=== PATIENT | female | born 1955 | race Caucasian/White ===

== ENCOUNTER 2021-11-09 09:32 | Outpatient (CLI) | payer OTHER, SELFPAY ==
--- NOTE | 2021-11-09 10:15 | CRLHL7_ITS ---
For Patients: As a result of the Century Cures Act, medical imaging exams and procedure reports are released immediately into your electronic medical record. You may view this report before your referring provider. If you have questions, please contact your health care provider. BILATERAL SCREENING MAMMOGRAM WITH COMPUTER-AIDED DETECTION AND TOMOSYNTHESIS TECHNIQUE: CC and MLO views were obtained. These mammographic images have been obtained using full-field digital technique. These mammographic images were interpreted with the benefit of computer-aided detection. Breast Tomosynthesis was used in this interpretation. COMPARISON FILM: 05/28/20, 03/23/17, 03/08/16. FINDINGS: The breasts are heterogeneously dense, which may obscure small masses IMPRESSION: There is no radiographic evidence for malignancy. ASSESSMENT: BI-RADS Category 1: Negative RECOMMENDATION: Routine screening mammogram in 1 year. A lay language report of this examination will be provided to the patient. Mayo Escalona M.D. Diagnostic Radiologist [email or web address] LUZMA/Dictated by: Mayo Escalona MD @ 11/09/2021 12:43:00 PM (Electronically Signed)
== END 2021-11-09 09:33 | disposition home or self-care (01) ==
LOC: MAMMO 09:35
PROVIDERS: Visit Provider Family Medicine
DX: Z12.31 Encounter for screening mammogram for malignant neoplasm of breast (principal); R92.2 Inconclusive mammogram
CPT/HCPCS: 77063; 77067

== ENCOUNTER 2022-09-30 12:40 | Emergency (ER) | payer OTHER, SELFPAY ==
[2022-09-30] VITALS (24 sets, daily range): BP systolic 110–134; BP diastolic 77–97; PULSE 80–92; RESP 12; TEMP 36.3; O2SAT 94–100
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
--- NOTE | 2022-09-30 12:56 | CRLHL7_ITS ---
For Patients: As a result of the Century Cures Act, medical imaging exams and procedure reports are released immediately into your electronic medical record. You may view this report before your referring provider. If you have questions, please contact your health care provider. CLINICAL HISTORY: Trauma. TECHNIQUE: Helical CT acquisition of the cervical spine was performed. Coronal and sagittal reformations were performed and interpreted. COMPARISON: None available. FINDINGS: There is no evidence of acute displaced fracture or traumatic malalignment of the cervical spine. The facets are well aligned. Vertebral body heights are maintained without evidence of significant compression deformity. No evidence of significant trauma at the craniocervical junction. Cervical spondylosis. Uncovertebral hypertrophy and facet arthropathy contribute to varying degrees of multilevel foraminal narrowing, severe at multiple levels. No evidence of severe spinal canal stenosis. The visualized prevertebral soft tissues are unremarkable. The visualized lung apices are unremarkable. IMPRESSION: No acute displaced fracture or traumatic malalignment of the cervical spine. Please note that all CT scans at this facility use dose modulation, iterative reconstruction, and/or weight-based dosing when appropriate to reduce radiation dose to as low as reasonably achievable. Dictated by Fabio Kim MD @ 09/30/2022 1:33:52 PM (Electronically Signed)
--- NOTE | 2022-09-30 12:56 | CRLHL7_ITS ---
For Patients: As a result of the Century Cures Act, medical imaging exams and procedure reports are released immediately into your electronic medical record. You may view this report before your referring provider. If you have questions, please contact your health care provider. CLINICAL HISTORY: Trauma. TECHNIQUE: Standard helical CT image acquisition of the brain was performed. COMPARISON: None available. FINDINGS: There is no intracranial hemorrhage, extra-axial collection, mass effect, or midline shift. Gama-white matter differentiation is preserved. The ventricles are normal in size and morphology for patient age. No displaced calvarial fracture. The orbits are unremarkable. The paranasal sinuses are unremarkable. The mastoid air cells are unremarkable. IMPRESSION: No CT evidence of acute intracranial abnormality or closed-head injury. Please note that all CT scans at this facility use dose modulation, iterative reconstruction, and/or weight-based dosing when appropriate to reduce radiation dose to as low as reasonably achievable. Dictated by Fabio Kim MD @ 09/30/2022 1:30:59 PM (Electronically Signed)
--- NOTE | 2022-09-30 12:56 | CRLHL7_ITS ---
For Patients: As a result of the Century Cures Act, medical imaging exams and procedure reports are released immediately into your electronic medical record. You may view this report before your referring provider. If you have questions, please contact your health care provider. INDICATION: Back injury. TECHNIQUE: Three views right hand. IMPRESSION: No fracture. Anatomic alignment. No significant degenerative or inflammatory change in the fingers. Moderate osteoarthritis 1st carpometacarpal joint with marginal osteophytes and slight radial subluxation. Dictated by Guillermo Heard MD @ 09/30/2022 2:03:50 PM (Electronically Signed)
== END 2022-09-30 14:56 | disposition home or self-care (01) ==
PROVIDERS: Emergency Provider Family Medicine
DX: S09.90XA Unspecified injury of head, initial encounter (principal); M18.11 Unilateral primary osteoarthritis of first carpometacarpal joint, right hand; V26.49XA Other motorcycle driver injured in collision with other nonmotor vehicle in traffic accident, initial encounter
CPT/HCPCS: 29130; 70450; 72125; 73130; 99284; 99291

== ENCOUNTER 2022-12-13 10:55 | Outpatient (CLI) | payer OTHER, SELFPAY ==
--- NOTE | 2022-12-13 15:40 | CRLHL7_ITS ---
For Patients: As a result of the Century Cures Act, medical imaging exams and procedure reports are released immediately into your electronic medical record. You may view this report before your referring provider. If you have questions, please contact your health care provider. BILATERAL SCREENING MAMMOGRAM WITH COMPUTER-AIDED DETECTION AND TOMOSYNTHESIS TECHNIQUE: CC and MLO views were obtained. These mammographic images have been obtained using full-field digital technique. These mammographic images were interpreted with the benefit of computer-aided detection. Breast Tomosynthesis was used in this interpretation. COMPARISON FILM: 11/09/21, 05/28/20, 03/23/17. FINDINGS: The breasts are heterogeneously dense, which may obscure small masses IMPRESSION: There is no radiographic evidence for malignancy. ASSESSMENT: BI-RADS Category 1: Negative RECOMMENDATION: Routine screening mammogram in 1 year. A lay language report of this examination will be provided to the patient. Mayo Escalona M.D. Diagnostic Radiologist [email or web address] LUZMA/Dictated by: Mayo Escalona MD @ 12/13/2022 12:29:00 PM (Electronically Signed)
== END 2022-12-13 10:56 | disposition home or self-care (01) ==
LOC: MAMMO 10:56
PROVIDERS: Visit Provider Family Medicine
DX: Z12.31 Encounter for screening mammogram for malignant neoplasm of breast (principal); R92.2 Inconclusive mammogram
CPT/HCPCS: 77063; 77067

== ENCOUNTER 2023-02-21 14:37 | Outpatient (CLI) | payer OTHER, SELFPAY ==
--- NOTE | 2023-02-21 15:00 | CRLHL7_ITS ---
For Patients: As a result of the Century Cures Act, medical imaging exams and procedure reports are released immediately into your electronic medical record. You may view this report before your referring provider. If you have questions, please contact your health care provider. DXA BONE MINERAL DENSITY STUDY, 02/21/2023 Current height (in): 67. Weight (lb): 132.0. Menopause age: 52. Ethnicity: White. 1. Have you had a previous hip or vertebral fracture? No. 2. Have you had any fractures during your adult life which did not result from significant trauma (e.g., auto accident)? No. 3. Did either of your parents have a hip fracture? No. 4. Do you smoke? No. 5. Have you ever taken Glucocorticoids? No. 6. Do you have rheumatoid arthritis? No. 7. Do you have secondary osteoporosis? No. 8. Do you drink 3 or more alcoholic drinks per day? No. 9. Are you being treated for osteoporosis? No. 10. Have you ever taken any of the following medications: Actonel, Evista, Fosamax, Miacalcin, Reclast, Boniva, Forteo, HRT (i.e. estrogen/hormone therapy), Protelos, Prolia, Vitamin D, Calcium, other ??? please specify. ANSWER: No. 11. Do you have any of the following medical conditions: Anorexia or bulimia, asthma or emphysema, end stage renal disease, hyperparathyroidism, any seizure disorders, cancer, inflammatory bowel diseases, hysterectomy, other ??? please specify. ANSWER: No. 12. What was your maximum height (inches)? 67.5. 13. Do you perform weight bearing exercise regularly? No. 14. Do you regularly consume dairy products? No. 15. Do you drink caffeinated beverages? No. If female: 16. At what age did your period start? 15. 17. Are you premenopausal? No. 18. How many full term pregnancies have you had? 3. 19. Have you ever missed your period for more than 6 months in a row (not including or menopause)? No. TECHNIQUE: Bone mineral density study was performed using the [employer]. FINDINGS: The results of the study expressed as bone mineral density (BMD) are as follows: Lumbar spine L1, L2 and L4: BMD: 0.971 g/cm2. T-score: -0.6. Z-score: 1.2. Neck Left: BMD: 0.655 g/cm2. T-score: -1.7. Z-score: -0.2. Right: BMD: 0.682 g/cm2. T-score: -1.5. Z-score: 0.0. Total Left: BMD: 0.733 g/cm2. T-score: -1.7. Z-score: -0.5. Right: BMD: 0.813 g/cm2. T-score: -1.1. Z-score:0.2. IMPRESSION: Osteopenia. *Comparison exams done prior to 08/2019 were performed on different unit, [facility]. Mayo Escaloan M.D. Diagnostic Radiologist [email or web address] CAMERON/jeannie JR/Dictated by: Mayo Escalona MD @ 02/26/2023 6:35:00 AM (Electronically Signed)
== END 2023-02-21 14:38 | disposition home or self-care (01) ==
LOC: RAD 14:38
PROVIDERS: Visit Provider Family Medicine
DX: Z13.820 Encounter for screening for osteoporosis (principal); M85.89 Other specified disorders of bone density and structure, multiple sites
CPT/HCPCS: 77080

== ENCOUNTER 2023-07-05 09:39 | Outpatient (CLI) | payer MEDICARE, BC, SELFPAY ==
--- OUTSIDE RECORDS SUMMARY | 2023-07-05 09:43 | XMS_ITS | Clinical Summary ---
Author Name Unknown Organization [facility] Address [place], [place] [address] Care Team Providers Care Director Hematology Name Role Phone Adan Song Primary Care Provider [phone] Allergies Active Allergy Reactions Criticality Noted Date Comments Penicillins Hives 02/24/2011 Medications Medication Sig Dispensed Refills Start Date End Date Status lisinopril (PRINIVIL; ZESTRIL) 10 mg tablet Take 10 mg by mouth once daily. Active aspirin 81 mg tablet Take 81 mg by mouth once daily with a meal. Active HYDROcodone-acetam inophen, 5-500 mg, (VICODIN) Tab tablet Take 1-2 tablets by mouth every 6 hours if needed for Pain. Max acetaminophen dose: 4000mg in 24 hrs. 25 tablet 0 03/07/2011 Active Family History Medical History Relation Name Comments Cancer-prostate Maternal Uncle 60s Cancer No Family History Cancer-breast No Family History Cancer-colon No Family History Cancer-ovarian No Family History Relation Name Status Comments Maternal Uncle Social History Tobacco Use Types Packs/Day Years Used Date Smoking Tobacco: Never Assessed Sex and Gender Information Value Date Recorded Sex Assigned at Not on file Gender Identity Not on file Sexual Orientation Not on file Obstetrics History Last Filed Vital Signs Vital Sign Reading Time Taken Comments Blood Pressure 96/66 03/14/2011 3:29 PM SENIOR INTEGRATION DEVELOPER Pulse 83 03/14/2011 3:29 PM SENIOR INTEGRATION DEVELOPER Temperature 36.5 ??C (97.7 ??F) 03/14/2011 3:03 PM CS T Respiratory Rate 16 03/14/2011 3:29 PM SENIOR INTEGRATION DEVELOPER Oxygen Saturation 96% 03/14/2011 3:29 PM SENIOR INTEGRATION DEVELOPER Inhaled Oxygen Concentration - - Weight 62.1 kg (137 lb) 03/14/2011 1:37 PM SENIOR INTEGRATION DEVELOPER Height 170.2 cm (5' 7) 03/14/2011 1:37 PM SENIOR INTEGRATION DEVELOPER Body Mass Index 21.46 03/14/2011 1:37 PM SENIOR INTEGRATION DEVELOPER Plan of Treatment Health Maintenance Due Date Last Done Comments Tdap 1968 Depression screening for age 12+ 1969 HIV for age 15-65 1972 BMI (ht and wt on same day) for age 18+ 12/12/1975 Hepatitis C screening for age 18-79 12/12/1975 Tetanus booster 1977 Pap test for age 21-65 1978 Colonoscopy through age 75 2002 Lipids for age 45-75 2002 Mammogram for age 45-75 2002 Zoster (shingles) series for age 50+ (1 of 2) 12/12/19 08 COVID-19 vaccine series (1 - 2022- season) 3 DEXA/DXA scan for age 65+ 2022 Pneumococcal series for age 65+ (1 of 1 - PCV) 023 Influenza for age 65+ 11/25/2023 Care Teams Director Hematology Relationship Specialty Start Date End Date Adan Song PCP - General Family Practice 02/14/11
--- OUTSIDE RECORDS SUMMARY | 2023-07-05 09:44 | XMS_ITS | Referral Summary ---
Author Name Unknown Organization [facility] Address [address] [place] [address] Care Team Providers Care Dietetic Aide Name Role Phone Unavailable Primary Care Provider Unavailabl e Source Comments Patient records contain information from all sites at [facility]. For routine questions regarding patient records, call [phone] during business hours, M-F 8:00 AM - 5:00 PM Central Time. Record requests for emergency care only can be directed to [phone] at any time.[facility] Encounters Date Type Department Care Team Description 04/19/2023 12:40 PM FILM LOADER Silent Schedule Department of Ophthalmology in [address] [phone] Duy Syed M.D. 04/19/2023 12:35 PM FILM LOADER Silent Schedule Department of Ophthalmology in [address] [phone] Duy Syed M.D. 04/19/2023 12:30 PM FILM LOADER Silent Schedule Department of Ophthalmology in [address] [phone] Duy Syed M.D. 04/19/2023 12:30 PM FILM LOADER Comprehensive Visit Department of Ophthalmology in [address] [phone] Duy Syed M.D. Cataract Senile Nuclear Sclerosis Bilateral (Primary Dx); Cataract Senile Cortical Bilateral; Laser Assisted In Situ Keratomileusis Status Post; Presbyopia Discharge Disposition: Home or Self Care from Last 3 Months Allergies Active Allergy Reactions Criticality Noted Date Comments Fluoxetine Nausea And Vomiting 09/28/2016 Penicillins Hives (Reselect Reac tion),Hives only, no other systemic symptoms Medium 06/28/2010 PENICILLINS Medications Medication Sig Dispensed Refills Start Date End Date Status atorvastatin (LIPITOR) 40 mg tablet Take ONE tab nightly for cholesterol 0 01/16/2023 Active clonazePAM (KlonoPIN) 0.5 mg tablet May take 1/2 to one tab once a day or as instructed 0 09/29/2016 Active venlafaxine XR (EFFEXOR-XR) 150 mg 24 hr capsule Take one a day 0 03/07/2023 Active omeprazole (PriLOSEC OTC) 20 mg EC tablet Take 1 tablet by mouth daily. 0 09/29/2016 Active metFORMIN (GLUCOPHAGE) 500 mg tablet TAKE ONE TABLET BY MOUTH TWICE A DAY FOR DIABETES 0 03/07/2023 Active lisinopriL (PRINIVIL,ZESTRIL) 10 mg tablet Take 10 mg by mouth. 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 Social History Tobacco Use Types Packs/Day Years Used Date Smoking Tobacco: Never Smokeless Tobacco: Never Tobacco Cessation:Counseling Given: Not Answered Nutrition Answer Date Recorded Nutrition: EVOO Fat Source Unknown 04/02 Nutrition: Servings of Fruits/Vegetables per Day Not on file 04/02/2023 Dental Answer Date Recorded Dental: Regular Dentist Unknown 04/02/19 Sex and Gender Information Value Date Recorded Sex Assigned at Not on file Gender Identity Not on file Sexual Orientation Not on file Last Filed Vital Signs Vital Sign Reading Time Taken Comments Blood Pressure 132/92 10/05/2016 8:20 AM CDT Pulse 104 10/05/2016 8:20 AM CDT Temperature - - Respiratory Rate 16 10/05/2016 8:20 AM CDT Oxygen Saturation - - Inhaled Oxygen Concentration - - Weight 64.1 kg (141 lb 5 oz) 04/19/2023 12:54 PM FILM LOADER Height 168.1 cm (5' 6.18) 04/19/2023 12:[address] Body Mass Index 22.68 04/19/2023 12:54 PM FILM LOADER Plan of Treatment Not on file Medical Devices Implanted Type Area Cook 3 Pastry Device Identifier Shelf Expiration Date Model / Serial / Lot Conversions - Default Historical Implant Device Implanted:Qty: 1 on 01/25/2012 Breast Other Left: Breast Description:Body Location - Breast L. Device Status Text - BreastOth. 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 Procedures Procedure Name Priority Date/Time Associated Diagnosis Comments OCULAR COHERENCE BIOMETRY (OCB) - OU - BOTH EYES Routine 04/19/2023 1:48 PM FILM LOADER Cataract Senile Nuclear Sclerosis Bilateral Cataract Senile Cortical Bilateral OPTICAL COHERENCE TOMOGRAPHY - MACULA/RETINA - OU - BOTH EYES Routine 04/19/2023 1:47 PM FILM LOADER Cataract Senile Nuclear Sclerosis Bilateral Cataract Senile Cortical Bilateral CORNEAL TOPOGRAPHY - OU - BOTH EYES Routine 04/19/2023 1:47 PM FILM LOADER Cataract Senile Nuclear Sclerosis Bilateral Cataract Senile Cortical Bilateral from Last 3 Months Results * Ocular Coherence Biometry (OCB) - OU - Both Eyes (04/19/2023 1:48 PM FILM LOADER) Duy Syed M.D. OPHTH PHOTOGRAPHY Performing Organization Address [facility] Co de Phone Number OPHTHALMOLOGY IMAGING EXAM * Optical Coherence Tomography - Macula/Retina - OU - Both Eyes (04/19/2023 1:47 PM FILM LOADER) Narrative OPHTHALMOLOGY IMAGING EXAM - 04/19/2023 1:47 PM FILM LOADER Right Eye Reliability was good. Scan locations included macula. Findings include normal observations. Left Eye Reliability was good. Scan locations included macula. Findings include normal observations. Duy Syed M.D. OPHTH TOMOGRAPHY Performing Organization Address [facility] Co de Phone Number OPHTHALMOLOGY IMAGING EXAM * Corneal Topography - OU - Both Eyes (04/19/2023 1:47 PM FILM LOADER) Narrative OPHTHALMOLOGY IMAGING EXAM - 04/19/2023 1:47 PM FILM LOADER Right Eye Findings include normal observations. Left Eye Findings include normal observations. Duy WEINSTEIN OTHER OPHTHALMOLOGY IMAGING EXAM from Last 3 Months
--- OUTSIDE RECORDS SUMMARY | 2023-07-05 09:44 | XMS_ITS ---
Author Name Unknown Organization [facility] Address [address] [place] [address] Care Team Providers Care Research Associate Molecular Biology Name Role Phone Unavailable Unavailable Unavailable Surgery Details Not on file Complications Check Surgery Details section. Procedure Estimated Blood Loss Check Surgery Details section. Procedure Findings Check Surgery Details section. Procedure Specimens Taken Check Surgery Details section.
--- OUTSIDE RECORDS SUMMARY | 2023-07-05 09:44 | XMS_ITS | Encounter Summary ---
Author Name Unknown Organization [facility] Address [address] [place] [address] Care Team Providers Care Breast Buffer Name Role Phone Unavailable Primary Care Provider Unavailabl e Encounter Details Date Type Department Care Team (Late st Contact Info) Description 04/19/2023 12:35 PM PRESCHOOL TEACHER AIDE Silent Schedule Department of Ophthalmology in [address] [phone] Duy Syed M.D. [address] [place] [phone] Social History Tobacco Use Types Packs/Day Years Used Date Smoking Tobacco: Never Smokeless Tobacco: Never Nutrition Answer Date Recorded Nutrition: EVOO Fat Source Unknown 04/02 Nutrition: Servings of Fruits/Vegetables per Day Not on file 04/02/2023 Dental Answer Date Recorded Dental: Regular Dentist Unknown 04/02/19 24 Sex and Gender Information Value Date Recorded Sex Assigned at Not on file Gender Identity Not on file Sexual Orientation Not on file documented as of this encounter Plan of Treatment Not on file documented as of this encounter Procedures Procedure Name Priority Date/Time Associated Diagnosis Comments OPTICAL COHERENCE TOMOGRAPHY - MACULA/RETINA - OU - BOTH EYES Routine 04/19/2023 1:47 PM PRESCHOOL TEACHER AIDE Cataract Senile Nuclear Sclerosis Bilateral Cataract Senile Cortical Bilateral documented in this encounter Results * Optical Coherence Tomography - Macula/Retina - OU - Both Eyes (04/19/2023 1:47 PM PRESCHOOL TEACHER AIDE) Narrative OPHTHALMOLOGY IMAGING EXAM - 04/19/2023 1:47 PM PRESCHOOL TEACHER AIDE Right Eye Reliability was good. Scan locations included macula. Findings include normal observations. Left Eye Reliability was good. Scan locations included macula. Findings include normal observations. Duy Syed M.D. OPHTH TOMOGRAPHY OPHTHALMOLOGY IMAGING EXAM documented in this encounter Visit Diagnoses Not on filedocumented in this encounter Additional Health Concerns Assessment Noted Time PHQ-9 Depression Total Score: 7 10/06/19 17 8:31 AM CDT documented as of this encounter
--- OUTSIDE RECORDS SUMMARY | 2023-07-05 09:44 | XMS_ITS | Encounter Summary ---
Author Name Unknown Organization [facility] er Address [address] [place] [address] Care Team Providers Care Electroplater Apprentice Name Role Phone Negrita Valdes APRN Primary Care Provider Encounter Details Date Type Department Care Team (Late st Contact Info) Description 05/07/2023 Orders Only [place] [address] [phone] Esteban Song MD 17[address] [facility] [address] [place] [phone] Social History Tobacco Use Types Packs/Day Years Used Date Smoking Tobacco: Never Smokeless Tobacco: Never Alcohol Use Standard Drinks/Week Comments No 0 (1 standard drink = 0.6 oz pur e alcohol) Humiliation, Afraid, Rape, and Kick questionnair e Answer Date Recorded Within the last year, have y ou been afraid of your partner or ex-partner? No 01/15/2023 Within the last year, have y ou been humiliated or emotionally abused in other ways by your partner or ex-partner? No Within the last year, have y ou been kicked, hit, slapped, or otherwise physically hurt by your partner or ex-partner? No 01/15/2023 Within the last year, have y ou been raped or forced to have any kind of sexual activity by your partner or ex-partner? No 01/15/2023 Social Connection and Isolat ion Panel [NHANES] Answer Date Recorded In a typical week, how many times do you talk on the phone with family, friends, or neighbors? Three times a week 01/15/2023 How often do you get togethe r with friends or relatives? More than three times a week 01/15/2023 How often do you attend chur or hinduism services? More than 4 times per year 01/15/2023 Do you belong to any clubs o r organizations such as samaritan groups, unions, fraternal or athletic groups, or school groups? Yes 01/15/2023 How often do you attend meet ings of the clubs or organizations you belong to? More than 4 times per year 01/15/2023 Are you , , di vorced, , never , or living with a partner? 01/15/2023 AUDIT-C Answer Date Recorded Q1: How often do you have a drink containing alcohol? Monthly or less 01/15/2023 Q2: How many drinks containi ng alcohol do you have on a typical day when you are drinking? Patient does not drink Q3: How often do you have si x or more drinks on one occasion? Never 01/15/2023 Overall Financial Resource Strain (CARDIA) Answe r Date Recorded How hard is it for you to pa y for the very basics like food, housing, medical care, and heating? Not hard at all 01/15/2023 PHQ-2 Answer Date Recorded PHQ-9 Total Score 1 01/15/2023 [facility] - Occupational Stress Questionnaire Answer Date Recorded Do you feel stress - tense, restless, nervous, or anxious, or unable to sleep at night because your mind is troubled all the time - these days? To some extent 01/15/2023 Exercise Vital Sign Answer Date Recorde d On average, how many days pe r week do you engage in moderate to strenuous exercise (like a brisk walk)? 1 day 01/15/2023 On average, how many minutes do you engage in exercise at this level? 20 min 01/15/2023 Hunger Vital Sign Answer Date Recorded Within the past 12 months, y ou worried that your food would run out before you got the money to buy more. Never true 01/16/20 Within the past 12 months, t he food you bought just didn't last and you didn't have money to get more. Never true 01/15/2023 PRAPARE - Transportation Answer Date Re corded In the past 12 months, has l ack of transportation kept you from medical appointments or from getting medications? No 12/25 In the past 12 months, has l ack of transportation kept you from meetings, work, or from getting things needed for daily living? No 01/15/2023 Housing Stability Vital Sign Answer Jayce e Recorded In the last 12 months, was t here a time when you were not able to pay the mortgage or rent on time? No 01/15/2023 In the last 12 months, how many places have you lived? 2 01/15/2023 In the last 12 months, was t here a time when you did not have a steady place to sleep or slept in a fdc (including now)? No 01/15/2023 Sex and Gender Information Value Date Recorded Sex Assigned at Not on file Gender Identity Not on file Sexual Orientation Not on file documented as of this encounter Plan of Treatment Not on file documented as of this encounter Visit Diagnoses Not on filedocumented in this encounter Care Teams Electroplater Apprentice Relationship Specialty Start Date End Date Negrita Valdes, SUBSYSTEMS ENGINEER [address] [place] [phone] PCP - General 01/11/23 documented as of this encounter
--- OUTSIDE RECORDS SUMMARY | 2023-07-05 09:44 | XMS_ITS | Encounter Summary ---
Author Name Unknown Organization [facility] er Address [address] [place] [address] Care Team Providers Care Bowling Ball Assembler Name Role Phone Negrita Valdes APRN Primary Care Provider Encounter Details Date Type Department Care Team (Late st Contact Info) Description 03/14/2023 Telephone [facility] 52 Sleep Medicine [address] [address] Wilma Petty, DNP, RIVERINE ASSAULT CRAFT CREWMAN, BRAND ADVISOR 4303 [facility] [address] [place], [place] [id number] Social History Tobacco Use Types Packs/Day Years [...] How often do you attend chur or evangelical services? More than 4 times per year 01/15/2023 Do you belong to any clubs o r organizations such as cheondoism groups, unions, fraternal or athletic groups, or [...] Date Recorded PHQ-9 Total Score 1 01/15/2023 [facility] - Occupational [...] place to sleep or slept in a assisted (including now)? No 01/15/2023 Sex and Gender Information Value Date Recorded Sex Assigned at Not on file Gender Identity Not on file Sexual Orientation Not on file documented as of this encounter Plan of Treatment Not on file documented as of this encounter Visit Diagnoses Not on filedocumented in this encounter Care Teams Bowling Ball Assembler Relationship Specialty Start Date End Date Negrita Valdes, RIVERINE ASSAULT CRAFT CREWMAN [address] [place] [phone] PCP - General 01/11/23 documented as of this encounter
--- OUTSIDE RECORDS SUMMARY | 2023-07-05 09:44 | XMS_ITS | Encounter Summary ---
Author Name Unknown Organization [facility] Address [address] [place] [address] Care Team Providers Care Community Service Aide Name Role Phone Unavailable Primary Care Provider Unavailabl e Reason for Referral * Outpatient (Routine) - Authorized Specialty Diagnoses / Procedures Referred By Marcel chaves Referred To Contact Ophthalmology Diagnoses Cataract Senile Nuclear Sclerosis Bilateral Cataract Senile Cortical Bilateral Duy Syed M.D. [address] [place] [phone] [facility] Referral ID Status Reason Start Date Expiration Date Visits Requested Visits Authorized [id number] Authorized Specialty Services Required 04/19/2023 10/18/2024 1 1 TSPERSONS Reason for Visit * Reason Comments Blurred Vision * Appointment Request (Routine) - Closed Specialty Diagnoses / Procedures Referred By Marecl chaves Referred To Contact Ophthalmology Referral ID Status Reason Start Date Expiration Date Visits Re quested Visits Authorized [id number] Closed 04/02/2023 04/01/2024 1 1 Encounter Details Date Type Department Care Team (Latest Contact Info) Description 04/19/2023 12:30 PM SPORTSPERSONS Comprehensive Visit Department of Ophthalmology in [place], [place] [address] [place] [phone] Duy Syed M.D. [address] [place] [phone] Cataract Senile Nuclear Sclerosis Bilateral (Primary Dx); Cataract Senile Cortical Bilateral; Laser Assisted In Situ Keratomileusis Status Post; Presbyopia Discharge Disposition: Home or Self Care Social History Tobacco Use Types Packs/Day Years [...] on file documented as of this encounter Last Filed Vital Signs Vital Sign Reading Time Taken Comments Blood Pressure - - Pulse - - Temperature - - Respiratory Rate - - Oxygen Saturation - - Inhaled Oxygen Concentration - - Weight 64.1 kg (141 lb 5 oz) 04/19/2023 12:54 PM SPORTSPERSONS Height 168.1 cm (5' 6.18) 04/19/2023 12:[address] Body Mass Index 22.68 04/19/2023 12:54 PM SPORTSPERSONS documented in this encounter Progress Notes * Duy Syed M.D. - 04/19/2023 12:30 PM [address]ST Margy Morton was seen today for Blurred Vision #1 Cataract Senile Nuclear Sclerosis Bilateral #2 Cataract Senile Cortical Bilateral #3 Laser Assisted In Situ Keratomileusis Status Post #4 Presbyopia THE PATIENT IS HERE TODAY FOR A CATARACT SURGERY EVALUATION. SHE WEARS GLASSES FOR READING AND FEELS LIKE HER VISION FOR THE MOST PART IS QUITE GOOD. She would LASIK surgery some years ago. Examination: Visual gonzalez by confrontation are intact, motility full, pupils normal, external normal Slit-lamp examination: Lid margins clean, conjunctiva clear quiet, cornea show mild inferior dry keratopathy, chambers quiet, lens shows +2 nuclear sclerosis and +1 cortical cataract OU Fundus: The disc, macula, vessels and periphery normal Impression 1. Refractive errors with presbyopia 2. History of LASIK surgery 3. Minimally symptomatic cataracts Plan: 1. Reassurance 2. Continue with reading glasses 3. Recheck annually. TSPERSONS documented in this encounter Plan of Treatment Scheduled Referrals Name Type Priority Associated Diagnoses Order Schedule Ophthalmology - General consult (clinic) Outpatient Referral Routine Cataract Senile Nuclear Sclerosis Bilateral Cataract Senile Cortical Bilateral Expected: 04/19/2024 (Approximate), Expires: 07/18/2024 documented as of this encounter Procedures Procedure Name Priority Date/Time Associated Diagnosis Comments OCULAR COHERENCE BIOMETRY (OCB) - OU - BOTH EYES Routine 04/19/2023 1:48 PM SPORTSPERSONS Cataract Senile Nuclear Sclerosis Bilateral Cataract Senile Cortical Bilateral OPTICAL COHERENCE TOMOGRAPHY - MACULA/RETINA - OU - BOTH EYES Routine 04/19/2023 1:47 PM SPORTSPERSONS Cataract Senile Nuclear Sclerosis Bilateral Cataract Senile Cortical Bilateral CORNEAL TOPOGRAPHY - OU - BOTH EYES Routine 04/19/2023 1:47 PM SPORTSPERSONS Cataract Senile Nuclear Sclerosis Bilateral Cataract Senile Cortical Bilateral documented in this encounter Results * Ocular Coherence Biometry (OCB) - OU - Both Eyes (04/19/2023 1:48 PM SPORTSPERSONS) Duy Syed M.D. OPHTH PHOTOGRAPHY Performing Organization Address [facility] Co de Phone Number OPHTHALMOLOGY IMAGING EXAM * Optical Coherence Tomography - Macula/Retina - OU - Both Eyes (04/19/2023 1:47 PM SPORTSPERSONS) Narrative OPHTHALMOLOGY IMAGING EXAM - 04/19/2023 1:47 PM SPORTSPERSONS Right Eye Reliability was good. Scan locations included macula. Findings include normal observations. Left Eye Reliability was good. Scan locations included macula. Findings include normal observations. Duy Syed M.D. OPHTH TOMOGRAPHY Performing Organization Address [facility] Co de Phone Number OPHTHALMOLOGY IMAGING EXAM * Corneal Topography - OU - Both Eyes (04/19/2023 1:47 PM SPORTSPERSONS) Narrative OPHTHALMOLOGY IMAGING EXAM - 04/19/2023 1:47 PM SPORTSPERSONS Right Eye Findings include normal observations. Left Eye Findings include normal observations. Duy Syed M.D. OPHTH OTHER OPHTHALMOLOGY IMAGING EXAM documented in this encounter Visit Diagnoses Diagnosis Cataract Senile Nuclear Sclerosis Bilateral- Primary Cataract Senile Cortical Bilateral Laser Assisted In Situ Keratomileusis Status Post Presbyopia documented in this encounter Additional Health Concerns Assessment Noted Time PHQ-9 Depression Total Score: 7 10/06/19 17 8:31 AM CDT documented as of this encounter
--- OUTSIDE RECORDS SUMMARY | 2023-07-05 09:44 | XMS_ITS | Encounter Summary ---
Author Name Unknown Organization [facility] er Address [address] [place] [address] Care Team Providers Care Television Newscast Director Name Role Phone Negrita Valdes APRN Primary Care Provider Reason for Visit * Reason Comments Blood Pressure Check Encounter Details Date Type Department Care Team (Late st Contact Info) Description 06/29/2023 2:40 PM CDT Clinical Support [place] [address] [facility] 20 [place] [address] Social History Tobacco Use Types Packs/Day Years Used Date Smoking Tobacco: Never Smokeless Tobacco: Never Tobacco Cessation:Counseling Given: Not Answered Alcohol Use Standard Drinks/Week Comments No 0 [...] 01/15/2023 How often do you attend chur ch or restorationism services? More than 4 times per year 01/15/2023 Do you belong to any clubs o r organizations such as muslim groups, unions, fraternal or athletic groups, or [...] Date Recorded PHQ-9 Total Score 1 01/15/2023 [facility] of Occupat ional Health - Occupational Stress [...] place to sleep or slept in a retirement (including now)? No 01/15/2023 Sex and Gender Information Value Date Recorded Sex Assigned at Not on file Gender Identity Not on file Sexual Orientation Not on file documented as of this encounter Last Filed Vital Signs Vital Sign Reading Time Taken Comments Blood Pressure 120/86 06/29/2023 3:00 PM CDT Pulse 92 06/29/2023 3:00 PM CDT Temperature - - Respiratory Rate - - Oxygen Saturation - - Inhaled Oxygen Concentration - - Weight - - Height - - Body Mass Index - - documented in this encounter Progress Notes * Angela Duarte LPN - 06/29/2023 2:40 PM CDT BP: 120/86 P: [address] Blood pressure check per Dr[address] Song. She takes her Benicar every morning 20mg. documented in this encounter Plan of Treatment Not on file documented as of this encounter Visit Diagnoses Not on filedocumented in this encounter Care Teams Television Newscast Director Relationship Specialty Start Date End Date Negrita Valdes APRN [address] [place] [id number] PCP - General 01/11/23 documented as of this encounter
--- OUTSIDE RECORDS SUMMARY | 2023-07-05 09:44 | XMS_ITS | Clinical Summary ---
Author Name Unknown Organization [facility] er Address [address] [place] [address] Care Team Providers Care Design Drafter Name Role Phone Negrita Valdes APRN Primary Care Provider Allergies Active Allergy Reactions Criticality Noted Date Comments Penicillin V Potassium Medium Medications Medication Sig Dispensed Refills Start Date End Date Status QUEtiapine (SEROquel) 100 MG tabletIndications:D epression, unspecified depression type,Anxiety,Sleep disturbance Take ONE and 1/2 tabs at night 135 tablet 3 09/22/2022 Active atorvastatin (Lipitor) 40 MG tabletIndications:M ixed hyperlipidemia Take ONE tab nightly for cholesterol 90 tablet 3 01/16/2023 Active clonazePAM (KlonoPIN) 0.5 MG tabletIndications:A nxiety May take 1/2 to one tab once a day or as instructed 30 tablet 5 02/19/2023 Active ARIPiprazole (ABILIFY) 5 MG tabletIndications:R ecurrent major depressive disorder, in partial remission (HCC) Take one a day 90 tablet 3 03/07/2023 Active metFORMIN (GLUCOPHAGE) 500 MG tabletIndications:T ype 2 diabetes mellitus without complication, without long-term current use of insulin (HCC) TAKE ONE TABLET BY MOUTH TWICE A DAY FOR DIABETES 180 tablet 1 03/07/2023 Active olmesartan (Benicar) 20 MG tabletIndications:P rimary hypertension Take one a day for blood pressure 135 tablet 1 03/07/2023 Active venlafaxine XR (EFFEXOR-XR) 150 MG 24 hr capsuleIndications: Recurrent major depressive disorder, in partial remission (HCC) Take one a day 90 capsule 3 03/07/2023 Active lisinopril (ZESTRIL) 10 MG tablet Take 1 tablet (10 mg total) by mouth 0 4 Discontinu ed(Alterna te Therapy) Active Problems Problem Noted Date Diagnosed Date Mixed hyperlipidemia 01/16/2023 Type 2 diabetes mellitus wit hout complication, without long-term current use of insulin 05/05/2021 Adenomatous polyp of descending colon 04/02/2020 Chronic post-traumatic stress disorder 7 Generalized anxiety disorder 08/28/2016 Primary hypertension 02/25/2014 Personal history of malignant neoplasm of breast 02/25/2014 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 Resolved Problems Problem Noted Date Diagnosed Date Resolved Date Severe episode of recurrent major depressive disorder 10/05/2016 04/02/2020 Encounters Date Type Department Care Team Description 06/29/2023 2:40 PM CDT Clinical Support [place] [address] [facility] [address] [place] [address] 05/07/2023 Telephone [place] [address] [facility] 20 [place] [address] Esteban Song MD 05/07/2023 Orders Only [place] [address] [facility] 20 [place] [address] Esteban Song MD from Last 3 Months Immunizations Name Administration Dates Next Due COVID-19, mRNA, LNP-S, PF, 100mcg/0.5mL dose Mod cuong 04/12/2021 Hepatitis A 07/18/2012 Hepatitis B 07/18/2012 Pneumococcal Polysaccharide 11/13/1996 Tdap 01/15/2023,06/21/2012 Family History Relation Status Comments Brother 1 Alive Brother 2 Daughter 1 Alive Daughter 2 Alive Father Mother Sister 1 Alive Sister 2 Alive Son Alive Social History Tobacco Use Types Packs/Day Years [...] often do you attend chur ch or hindu services? More than 4 times per year 01/15/2023 Do you belong to any clubs o r organizations such as mormon groups, unions, fraternal or athletic groups, or [...] Date Recorded PHQ-9 Total Score 1 01/15/2023 [facility] of Occupat ional Health - Occupational Stress [...] place to sleep or slept in a mcfp (including now)? No 01/15/2023 Sex and Gender Information Value Date Recorded Sex Assigned at Not on file Gender Identity Not on file Sexual Orientation Not on file Last Filed Vital Signs Vital Sign Reading Time Taken Comments Blood Pressure 120/86 06/29/2023 3:00 PM CDT Pulse 92 06/29/2023 3:00 PM CDT Temperature 36.9 ??C (98.4 ??F) 03/01/2023 10:[address] Respiratory Rate 16 03/01/2023 10:46 AM CORPORATE ADMINISTRATOR Oxygen Saturation 98% 03/01/2023 10:46 AM CORPORATE ADMINISTRATOR Inhaled Oxygen Concentration - - Weight 63 kg (139 lb) 03/01/2023 10:46 AM CORPORATE ADMINISTRATOR Height 170.2 cm (5' 7.01) 03/01/2023 10:[address] Body Mass Index 21.77 03/01/2023 10:46 AM CORPORATE ADMINISTRATOR Plan of Treatment Health Maintenance Due Date Last Done Comments CT Colonography 1957 FIT-DNA 1957 Sigmoidoscopy 1957 iFOBT 1957 Pneumococcal Vaccine: 65+ Years (2 of 2 - PCV) 11/13/1997 11/13/1996 Zoster Vaccines (1 of 2) 12/12/2007 COVID-19 Vaccine (4 - season) 2022 04/12/2021, 08/10/2020, 07/13/2020 Diabetes: Hemoglobin A1C 02/27/2023 023, 08/09/2021, 03/14/2021, Additional history exists Colonoscopy 05/29/2023 05/28/2020 Colorectal Cancer Screening 05/29/2023 Diabetes: Urine Protein Screening 08/29/2023 08/28/2022 Lipid Panel 08/29/2023 08/28/2022, 02/24, 04/02/2020, Additional history exists Mammogram 09/09/2023 05/28/2020 Postponed from 05/28/2021 (Patient Preference) Influenza Vaccine (Season Ended) 2023 Diabetic: Foot Exam 01/16/2024 01/15/2023, Fall Risk Performed 01/16/2024 01/15/2023 Diabetes: Retinopathy Screening 08/02/2024 08/02/2022 Bone Density Scan 01/17/2028 01/16/2023 DTaP,Tdap,and Td Vaccines (3 - Td or Tdap) 01/15/2033 01/15/2023, 06/21/2012 HPV Vaccines Aged Out No longer eligi ble based on patient's age to complete this topic Pap Smear Discontinued Care Teams Design Drafter Relationship Specialty Start Date End Date Negrita Valdes APRN [address] [place] [id number] PCP - General 01/11/23
--- OUTSIDE RECORDS SUMMARY | 2023-07-05 09:44 | XMS_ITS | Encounter Summary ---
Author Name Unknown Organization [facility] er Address [address] [place] [address] Care Team Providers Care Vegetable Thinner Name Role Phone Negrita Valdes APRN Primary Care Provider Reason for Visit * Reason Comments Med Refill Encounter Details Date Type Department Care Team (Late st Contact Info) Description 08/25/2022 [place] [address] [address] Esteban Song MD [address] [facility] 20 [place] [address] Screening for deficiency anemia (Primary Dx); Type 2 diabetes mellitus without complication, without long-term current use of insulin (HCC); Screening cholesterol level Social History Tobacco Use Types Packs/Day Years Used Date Smoking Tobacco: Never Smokeless Tobacco: Never Alcohol Use Standard Drinks/Week Comments No 0 (1 standard drink = 0.6 oz pur e alcohol) AUDIT-C Answer Date Recorded Frequency of Alcohol Consumption Never 03/15/2018 Average Number of Drinks Not on file 018 Frequency of Binge Drinking Not on file 02/24 PHQ-2 Answer Date Recorded PHQ-9 Total Score 3 05/04/2021 Sex and Gender Information Value Date Recorded Sex Assigned at Not on file Gender Identity Not on file Sexual Orientation Not on file documented as of this encounter Miscellaneous Notes * Telephone Encounter - Yvette Hoffmann RN - 08/25/2022 10:14 AM CDT Noted. * Telephone Encounter - Maday Torrez - 08/25/2022 10:09 AM CDT Scheduled fasting lab appt for 6..23. Will schedule px pending on those results. * Telephone Encounter - Meghan Ram LPN - 08/25/2022 9:39 AM CDT Patient is due for well adult appointment. PSR: Please contact patient to assist with scheduling. Upcoming appointment with provider: none Last visit in provider department: 05/04/2021 Last visit requested medication was discussed: 05/04/2021 annual exam Last Rx: metFORMIN (Glucophage) 500 MG 01/13/2022 # 180, 1 refill Requested Prescriptions Pending Prescriptions Disp Refills metFORMIN (GLUCOPHAGE) 500 MG tablet [Pharmacy Med Name: METFORMIN HCL 500MG TABS] 180 tablet 1 Sig: TAKE ONE TABLET BY MOUTH TWICE A DAY FOR DIABETES Labs: Labs are greater than 1 year Patient has pending Ha1c Vitals: BP Readings from Last 2 Encounters: 05/05/21 138/88 03/14/21 (!) 129/96 documented in this encounter Plan of Treatment Not on file documented as of this encounter Results * (ABNORMAL) Microalbumin/Creatinine Ratio (08/28/2022 8:47 AM CDT) Microalbumin,mg/ day 52.2(H) 0.0 - 16.6 mg/L 08/30/2022 1:40 PM CDT [facility] Comment: . Creatinine, Urine 235 mg/dL 08/30/2022 1:41 PM CDT [facility] Comment: No established reference range. Microalb/Creat Ratio 22 0 - 24 mg/g 08/30/2022 1:41 PM CDT [facility] Urine 08/28/2022 8:47 AM CDT 08/28/2022 12:26 PM CDT Esteban Song MD LAB URINE ORDERABLES [facility] [address] [place] [address] * (ABNORMAL) Lipid panel (08/28/2022 8:39 AM CDT) Cholesterol 164 0 - 199 mg/dL 08/28/2022 1:42 PM CDT [facility] Comment: Recommended by National Cholesterol Education Program (ATP III) -------- Cholesterol Ranges -------- <200 ?Desirable 200-239 ? Borderline high >=240 ? High Triglycerides 227(H) 0 - 149 mg/dL 08/28/2022 1:42 PM T [facility] Comment: -------- TRIG Ranges -------- <150 ?Normal 150-199 ? Borderline high 200-499 ? High >=500 ? Very high HDL 42 40 - 250 mg/dL 08/28/2022 1:42 PM T [facility] Comment: -------- HDL Ranges -------- <40 ?Low 40-59 ?Normal >=60 ? Optimal LDL Calculated 77 0 - 99 mg/dL 08/28/2022 1:42 PM T [facility] Comment: -------- LDL Ranges -------- <100 ? Optimal 100-129 ?Near optimal/above optimal 130-159 ?Borderline high 160-189 ?High >=190 ?Very high Fasting? Yes 08/28/2022 8:39 AM CDT [facility] Blood 08/28/2022 8:39 AM CDT 08/28/2022 12:26 PM CDT Esteban Song MD LAB BLOOD ORDERABLES Performing Organization Address [facility] de Phone Number [facility] [address] [place], [place] [id number] * (ABNORMAL) Hemoglobin A1c (08/28/2022 8:39 AM CDT) Hemoglobin A1C 6.4(H) 4.0 - 5.6 % A1C 08/28/2022 1:43 PM CDT [facility] Comment: Reference Range 4.0-5.6% is for non- adults >=18 yrs <5.6% ? Non-Diabetic 5.7-6.4% ??Increased risk of Diabetes >=6.5% ?Indicative of Diabetes <7.0% ? ADA goal for glycemic control Methodology may not detect all hemoglobin variants which can affect A1c results. Method certified by National Glycohemoglobin Standardization Program. Blood 08/28/2022 8:39 AM CDT 08/28/2022 12:26 PM CDT Esteban Song MD LAB BLOOD ORDERABLES Performing Organization Address [facility] Phone Number [facility] [address] [place] [phone] * (ABNORMAL) Basic metabolic panel (08/28/2022 8:39 AM CDT) Sodium 149(H) 135 - 145 mmol/L 08/28/2022 9:02 AM CDT [facility] Potassium 4.8 3.5 - 5.1 mmol/L 08/28/2022 9:02 AM CDT [facility] Comment: . Chloride 108(H) 98 - 107 mmol/L 08/28/2022 9:02 AM CDT [facility] Comment: . CO2 28 22 - 29 mmol/L 08/28/2022 9:02 AM CDT [facility] Comment: . Creatinine 1.0 0.4 - 1.2 mg/dL 08/28/2022 9:02 AM CDT [facility] Comment: . BUN 14 5 - 25 mg/dL 08/28/2022 9:02 AM CDT [facility] Comment: . Glucose 127(H) 70 - 100 mg/dL 08/28/2022 9:02 AM CDT [facility] Calcium, Total,S 10.1 8.4 - 10.2 mg/dL 08/28/2022 9:02 AM CDT [facility] Comment: . Blood 08/28/2022 8:39 AM CDT 08/28/2022 8:39 AM CDT DBogdan Song MD LAB BLOOD ORDERABLES [facility] [address] [place] [address] * (ABNORMAL) CBC Branch Off w/Diff (08/28/2022 8:39 AM CDT) WBC 5.3 3.5 - 10.5 K/uL 08/28/2022 8:48 AM CDT [facility] RBC 5.17(H) 3.90 - 5.00 M/uL 08/28/2022 8:48 AM CDT [facility] Hemoglobin 13.8 12.0 - 15.5 g/dL 08/28/2022 8:48 AM CDT [facility] Hematocrit 42.9 35.0 - 44.0 % 08/28/2022 8:48 AM CDT [facility] Platelets 238 150 - 450 K/uL 08/28/2022 8:48 AM CDT [facility] MCV 83.0 81.6 - 98.3 fL 08/28/2022 8:48 AM CDT [facility] MCH 26.7 26.0 - 32.0 pg 08/28/2022 8:48 AM CDT [facility] MCHC 32.2 32.0 - 36.0 g/dL 08/28/2022 8:48 AM CDT [facility] RDW 14.1 11.9 - 15.5 % 08/28/2022 8:48 AM CDT [facility] Lymphocytes % 28.0 % 08/28/2022 8:48 AM CDT [facility] Mid-size Cells 9.7 % 08/28/2022 8:48 AM CDT [facility] Granulocytes/Leyla trophils 62.3 % 08/28/2022 8:48 AM CDT [facility] Lymphocytes Absolute 1.5 0.9 - 2.9 K/uL 08/28/2022 8:48 AM CDT [facility] MIDS Absolute 0.5 0.4 - 1.5 K/uL 08/28/2022 8:48 AM CDT [facility] Granulocytes/Leyla trophils Absolute 3.3 1.7 - 7.0 K/uL 08/28/2022 8:48 AM CDT [facility] Blood (Blood, Venous) 08/28/2022 8:39 AM CDT 08/28/2022 8:39 AM CDT Esteban Song MD LAB BLOOD ORDERABLES [facility] [address] [place] [address] documented in this encounter Visit Diagnoses Diagnosis Screening for deficiency anemia- Primary Screening for other and unspecified deficiency anemia Type 2 diabetes mellitus without complication, without long-term current use of insulin (HCC) Screening cholesterol level Screening for lipoid disorders documented in this encounter Care Teams Vegetable Thinner Relationship Specialty Start Date End Date Negrita Valdes APRN [address] [place] [phone] PCP - General 01/11/23 documented as of this encounter
--- OUTSIDE RECORDS SUMMARY | 2023-07-05 09:44 | XMS_ITS | Encounter Summary ---
Author Name Unknown Organization [facility] er Address [address] [place] [address] Care Team Providers Care Foaming Machine Operator Name Role Phone Negrita Valdes APRN Primary Care Provider Encounter Details Date Type Department Care Team (Late st Contact Info) Description 05/07/2023 Telephone [place] [address] [address] Esteban Song MD 1705 [facility] 20 [place] [address] Social History Tobacco Use Types Packs/Day Years [...] How often do you attend chur or sabianist services? More than 4 times per year 01/15/2023 Do you belong to any clubs o r organizations such as jew groups, unions, fraternal or athletic groups, or [...] Date Recorded PHQ-9 Total Score 1 01/15/2023 [facility] of Occupat ional Health - Occupational [...] place to sleep or slept in a halfway (including now)? No 01/15/2023 Sex and Gender Information Value Date Recorded Sex Assigned at Not on file Gender Identity Not on file Sexual Orientation Not on file documented as of this encounter Miscellaneous Notes * Telephone Encounter - Maday Torrez - 05/16/2023 11:18 AM CST Contacted to schedule est care visit w/pre-op for colonoscopy at same visit. She is going to contact her ins co to make sure when she can have this procedure done and then will call to schedule appropriate appts. CAL IMAGING TECHNOLOGIST * Telephone Encounter - Yvette Hoffmann RN - 05/08/2023 7:36 AM CST Please call patient to schedule a preop visit prior to colonoscopy and establish care visit with Rogers. CAL IMAGING TECHNOLOGIST * Telephone Encounter - Esteban Song MD - 05/07/2023 5:13 PM CST Let Margy know that Joy will require a Precolonoscopy evaluation which can be done at thesame time as an establish care visit so the visit along with her lab tests would be appropriate. CAL IMAGING TECHNOLOGIST * Telephone Encounter - Madya Torrez - 05/07/2023 2:20 PM CST Contacted to set up labs/est care visit w/Sybil. CHIP Valdes. She would like to have the colonoscopy done in [facility]. She will make a lab appt but does not understand why she should need an est care visit. PSR informed she would need a referral for the colonoscopy. Wants to know if the est care visit isnecessary as she just saw Dr. Song recently. Advise. [phone]. CAL IMAGING TECHNOLOGIST * Telephone Encounter - Yvette Hoffmann RN - 05/07/2023 8:31 AM CST Please call patient to schedule an establish care visit with Negrita and to have labs done at theend of May. CAL IMAGING TECHNOLOGIST documented in this encounter Plan of Treatment Not on file documented as of this encounter Visit Diagnoses Not on filedocumented in this encounter Care Teams Foaming Machine Operator Relationship Specialty Start Date End Date Negrita Valdes, TRANG [address] [place] [phone] PCP - General 01/11/23 documented as of this encounter
--- OUTSIDE RECORDS SUMMARY | 2023-07-05 09:44 | XMS_ITS | Encounter Summary ---
Author Name Unknown Organization [facility] er Address [address] [place] [address] Care Team Providers Care Vehicle Dismantler Name Role Phone Negrita Valdes APRN Primary Care Provider Encounter Details Date Type Department Care Team (Late st Contact Info) Description 03/14/2023 Telephone [facility] 52 Sleep Medicine [address] [address] Wilma Petty, DNP, COMPETITIVE SHOPPER, SHUTTLE FITTING SUPERVISOR [address] [facility] [address] [place], [place] [id number] Social History Tobacco Use Types Packs/Day Years [...] How often do you attend chur or restoration services? More than 4 times per year 01/15/2023 Do you belong to any clubs o r organizations such as jewish groups, unions, fraternal or athletic groups, or [...] Date Recorded PHQ-9 Total Score 1 01/15/2023 [facility] of Occupat ional Health - Occupational [...] place to sleep or slept in a detention (including now)? No 01/15/2023 Sex and Gender Information Value Date Recorded Sex Assigned at Not on file Gender Identity Not on file Sexual Orientation Not on file documented as of this encounter Miscellaneous Notes * Telephone Encounter - Maria Alejandra Skelton - 03/14/2023 4:53 PM CST Dayan from [facility] called needed visit note prior to sleep study on 01/20/22. It could've been from a primary care. Please fax to [phone] MAKER documented in this encounter Plan of Treatment Not on file documented as of this encounter Visit Diagnoses Not on filedocumented in this encounter Care Teams Vehicle Dismantler Relationship Specialty Start Date End Date Negrita Valdes APRN [address] [place] [id number] PCP - General 01/11/23 documented as of this encounter
--- OUTSIDE RECORDS SUMMARY | 2023-07-05 09:44 | XMS_ITS | Clinical Summary ---
Author Name Unknown Organization [facility] Address [address] [place] [address] Care Team Providers Care Tire Care Manager Name Role Phone Unavailable Primary Care Provider Unavailabl e Source Comments Patient records contain information from all sites at [facility]. For routine questions regarding patient records, call [phone] during business hours, M-F 8:00 AM - 5:00 PM Central Time. Record requests for emergency care only can be directed to [phone] at any time.[facility] Allergies Active Allergy Reactions Criticality Noted Date [...] Episode Severe 09/28/2016 Dissection Carotid Artery 07/11/2010 Encounters Date Type Department Care Team Description 04/19/2023 12:40 PM RENTAL CAR FERRY DRIVER Silent Schedule Department of Ophthalmology in [address] [phone] Duy Syed M.D. 04/19/2023 12:35 PM RENTAL CAR FERRY DRIVER Silent Schedule Department of Ophthalmology in [address] [phone] Duy Syed M.D. 04/19/2023 12:30 PM RENTAL CAR FERRY DRIVER Silent Schedule Department of Ophthalmology in [address] [phone] Duy Syed M.D. 04/19/2023 12:30 PM RENTAL CAR FERRY DRIVER Comprehensive Visit Department of Ophthalmology in [address] [phone] Duy Syed M.D. Cataract Senile Nuclear Sclerosis Bilateral (Primary Dx); Cataract Senile Cortical Bilateral; Laser Assisted In Situ Keratomileusis Status Post; Presbyopia Discharge Disposition: Home or Self Care from Last 3 Months Family History Medical History Relation Name Comments Cataracts Mother Cataracts Sister Relation Name Status Comments Mother Sister Social History Tobacco Use Types Packs/Day Years [...] (141 lb 5 oz) 04/19/2023 12:54 PM RENTAL CAR FERRY DRIVER Height 168.1 cm (5' 6.18) 04/19/2023 12:[address] Body Mass Index 22.68 04/19/2023 12:54 PM RENTAL CAR FERRY DRIVER Plan of Treatment Health Maintenance Due Date Last Done Comments Bone Density Scan (Osteoporo sis Screen) 1957 CT Colonography 1957 Cologuard 1957 Depression Monitoring (PHQ-9) 1957 FIT 1957 HIV Screening 1955 Zoster Vaccines (1 of 2) 12/12/2007 Mammogram 03/07/2012 03/07/2011, 09/2010, 02/15/2011, Additional history exists Colonoscopy 08/24/2020 08/24/2010 Colorectal Cancer Screening 08/24/2020 COVID-19 Vaccine (4 - 2022-2 4 season) 2022 04/12/2021, 08/10/2020, 07/13/2020 Pneumococcal vaccine (65+ ye ars) (2 of 2 - PCV) 2022 11/13/1996 Influenza Vaccine (#1) 2022 Fall Risk Screen (Annual) 03/26/2023 Creatinine Level (Kidney Fun ction Test) 08/29/2023 08/28/2022, 04/02/2020, 03/15/2018, Additional history exists Potassium Level 08/29/2023 08/28/2022, 10/2020, 03/15/2018, Additional history exists Sodium Level 08/29/2023 08/28/2022, 10/2020, 03/15/2018, Additional history exists Fasting Glucose for Diabetes Screening 08/28/2025 08/28/2022, 08/09/2021, 03/14/2021, Additional history exists DTaP,Tdap,and Td Vaccines (3 - Td or Tdap) 01/15/2033 01/15/2023, 06/21/2012 Hepatitis C Screening Completed 09/29/2016 Medical Devices Implanted Type Area Blower Room Attendant Device Identifier Shelf Expiration Date Model / Serial / Lot Conversions - Default Historical Implant Device Implanted:Qty: 1 on 01/25/2012 Breast Other Left: Breast Description:Body Location - Breast L. Device Status Text - BreastOth. 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 Procedures Procedure Name Priority Date/Time Associated Diagnosis Comments OCULAR COHERENCE BIOMETRY (OCB) - OU - BOTH EYES Routine 04/19/2023 1:48 PM RENTAL CAR FERRY DRIVER Cataract Senile Nuclear Sclerosis Bilateral Cataract Senile Cortical Bilateral OPTICAL COHERENCE TOMOGRAPHY - MACULA/RETINA - OU - BOTH EYES Routine 04/19/2023 1:47 PM RENTAL CAR FERRY DRIVER Cataract Senile Nuclear Sclerosis Bilateral Cataract Senile Cortical Bilateral CORNEAL TOPOGRAPHY - OU - BOTH EYES Routine 04/19/2023 1:47 PM RENTAL CAR FERRY DRIVER Cataract Senile Nuclear Sclerosis Bilateral Cataract Senile Cortical Bilateral from Last 3 Months Results * Ocular Coherence Biometry (OCB) - OU - Both Eyes (04/19/2023 1:48 PM RENTAL CAR FERRY DRIVER) Duy Syed M.D. OPHTH PHOTOGRAPHY Performing Organization Address [facility] de Phone Number OPHTHALMOLOGY IMAGING EXAM * Optical Coherence Tomography - Macula/Retina - OU - Both Eyes (04/19/2023 1:47 PM RENTAL CAR FERRY DRIVER) Narrative OPHTHALMOLOGY IMAGING EXAM - 04/19/2023 1:47 PM RENTAL CAR FERRY DRIVER Right Eye Reliability was good. Scan locations included macula. Findings include normal observations. Left Eye Reliability was good. Scan locations included macula. Findings include normal observations. Duy Syed M.D. OPHTH TOMOGRAPHY Performing Organization Address [facility] de Phone Number OPHTHALMOLOGY IMAGING EXAM * Corneal Topography - OU - Both Eyes (04/19/2023 1:47 PM RENTAL CAR FERRY DRIVER) Narrative OPHTHALMOLOGY IMAGING EXAM - 04/19/2023 1:47 PM RENTAL CAR FERRY DRIVER Right Eye Findings include normal observations. Left Eye Findings include normal observations. Duy Syed M.D. OPHRENETTA OTHER Performing Organization Address [facility] Co de Phone Number OPHTHALMOLOGY IMAGING EXAM from Last [address] [place] [id number]
--- OUTSIDE RECORDS SUMMARY | 2023-07-05 09:44 | XMS_ITS | Encounter Summary ---
Author Name Unknown Organization [facility] er Address [address] [place] [address] Care Team Providers Care Utilization Coordinator Name Role Phone Negrita Valdes APRN Primary Care Provider Reason for Visit * Reason Onset Date Comments Med Refill 01/07/2018 Encounter Details Date Type Department Care Team (Late st Contact Info) Description 01/07/2018 Refill [place] [address] [phone] Esteban Song MD [address] [facility] [address] [place] [phone] Major depressive disorder in partial remission, unspecified whether recurrent (HCC) (Primary Dx) Social History Tobacco Use Types Packs/Day Years Used Date Smoking Tobacco: Never Assessed Sex and Gender Information Value Date Recorded Sex Assigned at Not on file Gender Identity Not on file Sexual Orientation Not on file documented as of this encounter Miscellaneous Notes * Telephone Encounter - Geni Goodman LPN - 01/07/2018 7:07 AM CDT Venlafaxine ER (venlafaxine) 150 mg capsule, extended release, oral, 1, Daily Last Prescribed: 10/01/2017 Prescriber: Adan Song Pharmacy: [id number] Quantity: 90 Refills: 1 Reason: depression/anxiety Instructions: Take the 150mg capsule with the 75mg capsule to = 225 daily Chronic: Y Venlafaxine 75mg not in IC Chart but in Epic Pt last seen on 02/07/17 No apt at this time Pt will be due in January for a CP Please have staff contact pt to make an appt documented in this encounter Plan of Treatment Not on file documented as of this encounter Visit Diagnoses Diagnosis Major depressive disorder in partial remission, unspecified whether recurrent (HCC)- Primary documented in this encounter Care Teams Utilization Coordinator Relationship Specialty Start Date End Date Negrita Valdes, PLASTICS FABRICATOR AND ASSEMBLER [address] [place] [address] PCP - General 01/11/23 documented as of this encounter
--- OUTSIDE RECORDS SUMMARY | 2023-07-05 09:44 | XMS_ITS | Encounter Summary ---
Author Name Unknown Organization [facility] Address [address] [place] [address] Care Team Providers Care Wool Tamper Name Role Phone Unavailable Primary Care Provider Unavailabl e Encounter Details Date Type Department Care Team (Late st Contact Info) Description 04/19/2023 12:30 PM MAINFRAME CONSULTANT Silent Schedule Department of Ophthalmology in [address] [phone] Duy Syed M.D. [address] [place] [phone] Social History Tobacco Use Types Packs/Day Years [...] - BOTH EYES Routine 04/19/2023 1:48 PM MAINFRAME CONSULTANT Cataract Senile Nuclear Sclerosis Bilateral Cataract Senile Cortical Bilateral documented in this encounter Results * Ocular Coherence Biometry (OCB) - OU - Both Eyes (04/19/2023 1:48 PM MAINFRAME CONSULTANT) Duy M Kunal M.D. OPHTH PHOTOGRAPHY OPHTHALMOLOGY IMAGING EXAM documented in this encounter Visit Diagnoses Not on filedocumented in this encounter Additional Health Concerns Assessment Noted Time PHQ-9 Depression Total Score: 7 10/06/19 17 8:31 AM CDT documented as of this encounter
--- OUTSIDE RECORDS SUMMARY | 2023-07-05 09:44 | XMS_ITS | Encounter Summary ---
Author Name Unknown Organization [facility] Address [address] [place] [address] Care Team Providers Care Hogshead Hand Name Role Phone Unavailable Primary Care Provider Unavailabl e Encounter Details Date Type Department Care Team (Late st Contact Info) Description 04/19/2023 12:40 PM END STAPLER Silent Schedule Department of Ophthalmology in [address] [phone] Duy Syed M.D. [address] [place] [phone] Social History Tobacco Use Types Packs/Day Years [...] Procedure Name Priority Date/Time Associated Diagnosis Comments CORNEAL TOPOGRAPHY - OU - BOTH EYES Routine 04/19/2023 1:47 PM END STAPLER Cataract Senile Nuclear Sclerosis Bilateral Cataract Senile Cortical Bilateral documented in this encounter Results * Corneal Topography - OU - Both Eyes (04/19/2023 1:47 PM END STAPLER) Narrative OPHTHALMOLOGY IMAGING EXAM - 04/19/2023 1:47 PM END STAPLER Right Eye Findings include normal observations. Left Eye Findings include normal observations. Duy Syed M.D. OPHRENETTA OTHER OPHTHALMOLOGY IMAGING EXAM documented in this encounter Visit Diagnoses Not on filedocumented in this encounter Additional Health Concerns Assessment Noted Time PHQ-9 Depression Total Score: 7 10/06/19 17 8:31 AM CDT documented as of this encounter
--- OUTSIDE RECORDS SUMMARY | 2023-07-05 09:44 | XMS_ITS | Encounter Summary ---
Author Name Unknown Organization [facility] er Address [address] [place] [address] Care Team Providers Care Health Information Coder Name Role Phone Negrita Valdes APRN Primary Care Provider Reason for Visit * Reason Comments Med Refill Encounter Details Date Type Department Care Team (Late st Contact Info) Description 02/24/2020 Refill [place] [address] [address] Esteban Song MD 1705 [facility] [address] [place] [address] Depression, unspecified depression type Social History Tobacco Use Types Packs/Day Years Used Date Smoking Tobacco: Never Smokeless Tobacco: Never Alcohol Use Standard Drinks/Week Comments No 0 (1 standard drink = 0.6 oz pur e alcohol) AUDIT-C Answer Date Recorded Frequency of Alcohol Consumption Never 03/15/2018 Average Number of Drinks Not on file 018 Frequency of Binge Drinking Not on file 02/24 PHQ-2 Answer Date Recorded PHQ-2 Score 0 07/24/2018 Sex and Gender Information Value Date Recorded Sex Assigned at Not on file Gender Identity Not on file Sexual Orientation Not on file documented as of this encounter Miscellaneous Notes * Telephone Encounter - Inna Bullard RN - 02/25/2020 3:04 PM CST Left message on secure line/cell for patient. Reminded her to call us at her convenience to schedule an appointment for her yearly review. AIGN CONSULTANT * Telephone Encounter - Lisbet Moore MA - 02/24/2020 10:52 AM CST LMTCB AIGN CONSULTANT * Telephone Encounter - Yvette Hoffmann RN - 02/24/2020 8:06 AM CST Please review request. AIGN CONSULTANT * Telephone Encounter - Meghan Ram LPN - 02/24/2020 7:57 AM CST Last visit in provider department: 02/19/2019 Last visit requested medication was discussed: 02/19/2019 Upcoming appointment with provider: Visit date not found Last Rx: 12/02/2019 # 90, 0 refills Requested Prescriptions Pending Prescriptions Disp Refills ??? QUEtiapine (SEROquel) 200 MG tablet [Pharmacy Med Name: QUETIAPINE FUMARATE 200 MG TAB] 90 tablet 0 Sig: TAKE 1 TABLET BY MOUTH NIGHTLY FOR DEPRESSION, ANXIETY AND SLEEP. PHQ9: / GAD7: not found in the last year Labs: Component Latest Ref Rng & Units 03/15/2018 Glucose 70 - 100 mg/dL 110 (H) 03/25/2014 Lipid panel Vitals: BP Readings from Last 2 Encounters: 02/19/19 122/78 03/15/18 (!) 132/92 Patient is due for appointment. PSR/Nurse: Please contact patient to assist with scheduling. AIGN CONSULTANT documented in this encounter Plan of Treatment Not on file documented as of this encounter Visit Diagnoses Diagnosis Depression, unspecified depression type documented in this encounter Care Teams Health Information Coder Relationship Specialty Start Date End Date Negrita Valdes, FLIGHT/TRANSPORT NURSE [address] [place] [address] PCP - General 01/11/23 documented as of this encounter
--- OUTSIDE RECORDS SUMMARY | 2023-07-05 09:45 | XMS_ITS | Clinical Summary ---
Author Name Unknown Organization [facility] Address [address] [place] [address]. 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 Provider to review Hereditary disease in family possibly affecting fetus, affecting management of mother in 01/09/2002 Overview: Problem list name updated by automated process. Provider to review Family History Medical History Relation Comments Thyroid Disease Maternal Grandmother Thyroid Pro blems Heart Disease Mother valve replacemen t/inner thickening of the heart lining/heriditary Thyroid Disease Mother Thyroid Problems Cancer Paternal Grandmother colon/breas t Gynecology Sister 1 Myomatous uterus Thyroid Disease Sister 2 Thyroid Problems Relation Status Comments Father Alive Maternal Grandmother Mother Alive Paternal Grandmother Sister 1 Sister 2 Social History Tobacco Use Types Packs/Day Years Used Date Smoking Tobacco: Never Smokeless Tobacco: Never Alcohol Use Standard Drinks/Week Comments No 0 (1 standard drink = 0.6 oz pur e alcohol) Sex and Gender Information Value Date Recorded Sex Assigned at Not on file Gender Identity Not on file Sexual Orientation Not on file Last Filed Vital Signs Vital Sign Reading Time Taken Comments Blood Pressure 126/74 02/06/2006 1:00 PM OVERNIGHT CASHIER Pulse 76 02/06/2006 1:00 PM OVERNIGHT CASHIER Temperature - - Respiratory Rate - - Oxygen Saturation - - Inhaled Oxygen Concentration - - Weight 61.2 kg (135 lb) 02/06/2006 1:00 PM OVERNIGHT CASHIER Height 168.9 cm (5' 6.5) 02/06/2006 1:00 PM OVERNIGHT CASHIER Body Mass Index 21.46 02/06/2006 1:00 PM OVERNIGHT CASHIER Plan of Treatment Not on file Care Teams Forestry Patrolman Relationship Specialty Start Date End Date Duy Syed MD [place] [address] [address] [facility] [address] [place] [address] PCP - Ophthalmology Ophthalmology 07/22/10 No Ref-Primary, Physician PCP - General 08/15/18
--- OUTSIDE RECORDS SUMMARY | 2023-07-05 09:45 | XMS_ITS | Encounter Summary ---
Author Name Unknown Organization [facility] Address [address] [place] [address]. [place] [address] Care Team Providers Care Junior Oracle Dba Name Role Phone Frw, None Primary Care Provider Jessenia Evans MD Unavailable [phone] Encounter Details Date Type Department Care Team (Late st Contact Info) Description 06/28/2010 10:15 AM [facility] in [address] [phone] David Dias MD [address] [address] Social History Tobacco Use Types Packs/Day Years [...] on filedocumented in this encounter Care Teams Junior Oracle Dba Relationship Specialty Start Date End Date Frw, None PCP - General 04/17/00 11/23/16 Jessenia [place] [address] PCP - Obstetrics/Gynecology 04/17/00 1 03/29/14 documented as of this encounter
--- OUTSIDE RECORDS SUMMARY | 2023-07-05 09:45 | XMS_ITS | Encounter Summary ---
Author Name Unknown Organization [facility] Address [address] [place] [address]. [place] [address] Care Team Providers Care Tight Rope Walker Name Role Phone Frw, None Primary Care Provider Jessenia Evans MD Unavailable [phone] Encounter Details Date Type Department Care Team (Late st Contact Info) Description 06/30/2010 10:05 AM [facility] in [address] [phone] David Dias MD [address] [address] Social History Tobacco Use Types Packs/Day Years [...] on filedocumented in this encounter Care Teams Tight Rope Walker Relationship Specialty Start Date End Date Frw, None PCP - General 04/17/00 11/23/16 Jessenia [place] [address] PCP - Obstetrics/Gynecology 04/17/00 1 03/29/14 documented as of this encounter
--- OUTSIDE RECORDS SUMMARY | 2023-07-05 09:45 | XMS_ITS | Referral Summary ---
Author Name Unknown Organization [facility] Address [address] [place] [address]. [place] [address] Care Team Providers Care Technology Assistant Name Role Phone Duy Syed MD Unavailable [phone] No Ref-Primary, Physician Primary Care Provider Allergies [...] updated by automated process. Provider to review Social History Tobacco Use Types Packs/Day Years [...] Comments Blood Pressure 126/74 02/06/2006 1:00 PM CHIEF DISPATCHER Pulse 76 02/06/2006 1:00 PM CHIEF DISPATCHER Temperature - - Respiratory Rate - - Oxygen Saturation - - Inhaled Oxygen Concentration - - Weight 61.2 kg (135 lb) 02/06/2006 1:00 PM CHIEF DISPATCHER Height 168.9 cm (5' 6.5) 02/06/2006 1:00 PM CHIEF DISPATCHER Body Mass Index 21.46 02/06/2006 1:00 PM CHIEF DISPATCHER Plan of Treatment Not on file Care Teams Technology Assistant Relationship Specialty Start Date End Date Duy Syed MD [facility] [address] [facility] [address] [place] [address] PCP - Ophthalmology Ophthalmology 07/22/10 No Ref-Primary, Physician PCP - General 08/15/18
--- OUTSIDE RECORDS SUMMARY | 2023-07-05 09:45 | XMS_ITS | Encounter Summary ---
Author Name Unknown Organization [facility] Address [address] [place] [address]. [place] [address] Care Team Providers Care Cutting Table Operator First Name Role Phone Frw, None Primary Care Provider Jessenia Evans MD Unavailable [phone] Duy Syed MD Unavailable Encounter Details Date Type Department Care Team (Late st Contact Info) Description 09/06/2010 12:45 PM CDT [facility] in [address] [phone] David Dias MD [address] [address] Social History Tobacco Use Types Packs/Day Years [...] on filedocumented in this encounter Care Teams Cutting Table Operator First Relationship Specialty Start Date End Date Frw, [place] PCP - General 04/17/00 11/23/16 Jess[place] [address] PCP - Obstetrics/Gynecology 04/17/00 1 03/29/14 Duy Syed MD [facility] [place] [address] [facility] [address] [place] [address] PCP - Ophthalmology Ophthalmology 07/22/10 documented as of this encounter
--- NOTE | 2023-07-05 11:32 | W.ANESCHARGE ---
Anesthesia Charges Start Date/Time Anesthesia Start Date: 07/05/23 Anesthesia Start Time: 10:55 Stop Date/Time Anesthesia Stop Date: 07/05/23 Anesthesia Stop Time: 11:30
--- NOTE | 2023-07-05 12:13 | W.ANESCHARGE ---
Anesthesia Charges Start Date/Time Anesthesia Start Date: 07/05/23 Anesthesia Start Time: 10:55 Stop Date/Time Anesthesia Stop Date: 07/05/23 Anesthesia Stop Time: 11:30
== END 2023-07-05 09:40 | disposition home or self-care (01) ==
PROVIDERS: Visit Provider Surgery
DX: Z12.11 Encounter for screening for malignant neoplasm of colon (principal); K64.9 Unspecified hemorrhoids; K63.5 Polyp of colon; Z86.010 Personal history of colon polyps
CPT/HCPCS: 00811; 45385; 88305; J2704